=== PATIENT | female | born 1995 | race Caucasian/White ===

== ENCOUNTER 2021-07-26 21:43 | Emergency (ER) | payer BC, OTHER ==
[~2021-07-26 21:43] MED LIST: Birth Control PO; NORCO 5-325 TA1 EACH PO
== END 2021-07-26 22:20 | disposition home or self-care (01) ==
LOC: ER1 21:43
DX: Z20.822 Contact with and (suspected) exposure to COVID-19 (principal); Z90.49 Acquired absence of other specified parts of digestive tract
CPT/HCPCS: 99283; U0003